=== PATIENT | female | born 1935 | race Caucasian/White ===

== ENCOUNTER 2019-11-11 13:47 | Inpatient (IN) | payer MEDICARE, BC ==
[2019-11-11] MEDS ORDERED: ONDANSETRON 4 MG/2 ML VIAL IVP STA (15:06)
[2019-11-11] MEDS ORDERED: SODIUM CHLORIDE 0.9% 1,000 ML IV STA (15:06)
[2019-11-11] MEDS ORDERED: FAMOTIDINE 20 MG/2 ML VIAL IV STA (15:06)
--- NOTE | 2019-11-11 15:09 | ED ---
General Adult HPI - General Chief complaint: Nausea/Vomiting/Diarrhea Stated complaint: Weakness, Hx Leukemia Time Seen by Provider: 11/11/19 14:24 Source: patient, RN notes reviewed Mode of arrival: wheelchair Limitations: no limitations - History of Present Illness Initial comments: Patient is a pleasant 84-year-old female presenting to the emergency department from,regarding concerns for dehydration. Patient states she has been vomiting for the past month. Patient is a poor historian. Patient states there is some sort of cancer history however is unclear what it is. Patient states her heart rate has normally irregular and fast. Patient feels nauseous and dry. No abdominal pain. No isolated area of weakness or confusion. - Related Data Allergies Allergy/AdvReac Type Severity Reaction Status Date / Time Penicillins Allergy Rash/Hives Verified 11/11/19 13:54 Review of Systems ROS Statement: Those systems with pertinent positive or pertinent negative responses have been documented in the HPI. ROS Other: All systems not noted in ROS Statement are negative. Constitutional: Denies: fever Eyes: Denies: eye pain ENT: Denies: ear pain Respiratory: Denies: cough Cardiovascular: Denies: chest pain Endocrine: Denies: fatigue Gastrointestinal: Reports: nausea, vomiting. Denies: abdominal pain Genitourinary: Denies: dysuria Musculoskeletal: Denies: back pain Skin: Denies: rash Neurological: Denies: weakness Past Medical History Past Medical History: Atrial Fibrillation Additional Past Medical History / Comment(s): leukemia History of Any Multi-Drug Resistant Organisms: None Reported Past Surgical History: No Surgical Hx Reported Past Psychological History: No Psychological Hx Reported Smoking Status: Never smoker Past Alcohol Use History: None Reported Past Drug Use History: None Reported General Exam Limitations: no limitations General appearance: alert, in no apparent distress Head exam: Present: normocephalic Eye exam: Present: normal appearance, PERRL ENT exam: Present: mucous membranes dry Neck exam: Present: normal inspection Respiratory exam: Present: normal lung sounds bilaterally Cardiovascular Exam: Present: tachycardia, irregular rhythm GI/Abdominal exam: Present: soft. Absent: tenderness Extremities exam: Present: normal inspection. Absent: pedal edema, calf tenderness Neurological exam: Present: alert. Absent: motor sensory deficit Psychiatric exam: Present: normal affect, normal mood Skin exam: Present: normal color Course Vital Signs 11/11/19 11/11/19 13:49 16:00 Temperature 97.4 F L Pulse Rate 134 H 71 Respiratory 24 18 Rate Blood Pressure 106/67 112/50 O2 Sat by Pulse 84 L 93 L Oximetry EKG Findings - EKG Comments: EKG Findings:: A. fib with RVR, rate 110. QRS 100. QT 348. QTC 470. Normal axis. Normal QRS. Nonspecific T waves. Medical Decision Making - Medical Decision Making Patient evaluated and is resting more comfortably in bed. Patient updated on results and plan. Case was discussed with practitioner Violet bridges who will consult for oncology. She recommends continued IV fluids and antibiotics. Case also discussed with Dr. Moreno, who will admit covering for Dr. Millard. - Lab Data Result diagrams: 11/11/19 14:50 11/11/19 14:50 Lab Results 11/11/19 11/11/19 11/11/19 Range/Units 14:50 14:50 14:50 WBC 168.4 H* (3.8-10.6) k/uL RBC 2.16 L (3.80-5.40) m/uL Hgb 7.5 L (11.4-16.0) gm/dL Hct 21.4 L (34.0-46.0) % MCV 99.2 (80.0-100.0) fL MCH 34.7 (25.0-35.0) pg MCHC 35.0 (31.0-37.0) g/dL RDW 18.7 H (11.5-15.5) % Plt Count 24 L (150-450) k/uL Neutrophils % (Manual) 1 % Lymphocytes % (Manual) 2 % Monocytes % (Manual) 2 % Blast Cells % 96 H* % Neutrophils # (Manual) 1.68 (1.3-7.7) k/uL Lymphocytes # (Manual) 3.37 (1.0-4.8) k/uL Monocytes # (Manual) 3.37 H (0-1.0) k/uL Blast Cells # (Man) 161.66 H (0) k/uL Nucleated RBCs 16 H (0-0) /100 WBC Manual Slide Review Performed Pathologist Review Hypochromasia Slight Poikilocytosis Slight Poikilocytosis (manual Present Anisocytosis Slight Macrocytosis Slight Sodium 138 (137-145) mmol/L Potassium 3.4 L (3.5-5.1) mmol/L Chloride 104 (98-107) mmol/L Carbon Dioxide 24 (22-30) mmol/L Anion Gap 10 mmol/L BUN 27 H (7-17) mg/dL Creatinine 1.32 H (0.52-1.04) mg/dL Est GFR (CKD-EPI)AfAm 43 (>60 ml/min/1.73 sqM) Est GFR (CKD-EPI)NonAf 38 (>60 ml/min/1.73 sqM) Glucose 137 H (74-99) mg/dL Plasma Lactic Acid Jelani 4.3 H* (0.7-2.0) mmol/L Calcium 8.1 L (8.4-10.2) mg/dL Phosphorus 4.2 (2.5-4.5) mg/dL Magnesium 2.0 (1.6-2.3) mg/dL Total Bilirubin 2.4 H (0.2-1.3) mg/dL AST 600 H (14-36) U/L ALT 119 H (4-34) U/L Alkaline Phosphatase 89 (38-126) U/L Total Protein 6.4 (6.3-8.2) g/dL Albumin 3.3 L (3.5-5.0) g/dL TSH 3.400 (0.465-4.680) mIU/L - Radiology Data Radiology results: image reviewed (Chest x-ray shows mild cardiac megaly) Disposition Clinical Impression: Dehydration, AML (acute myeloblastic leukemia) Disposition: ADMITTED IP TO THIS HOSP Is patient prescribed a controlled substance at d/c from ED?: No Referrals: Modesto Millard MD [Primary Care Provider] - 1-2 days Decision Time: 16:27
[2019-11-11 15:22] LABS: Anisocytosis Slight; HCT 21.4 % (34.0-46.0); HGB 7.5 gm/dL (11.4-16.0); Hypochromasia Slight; MCH 34.7 pg (25.0-35.0); MCV 99.2 fL (80.0-100.0); Macrocytosis Slight; Mean Platelet Volume 14.3; Poikilocytosis Slight; RBC 2.16 m/uL (3.80-5.40); RDW 18.7 % (11.5-15.5)
[2019-11-11 15:30] LABS: Albumin 3.3 g/dL (3.5-5.0); Calcium 8.1 mg/dL (8.4-10.2); Phosphorus 4.2 mg/dL (2.5-4.5); Potassium 3.4 mmol/L (3.5-5.1); Total Bilirubin 2.4 mg/dL (0.2-1.3); Total Protein 6.4 g/dL (6.3-8.2)
--- NOTE | 2019-11-11 15:37 | XR ---
EXAMINATION TYPE: XR chest 2V DATE OF EXAM: 11/11/2019 COMPARISON: NONE HISTORY: Vomiting and weakness. TECHNIQUE: Frontal and lateral views of the chest are obtained. FINDINGS: There is chronic parenchymal changes bilaterally without suspicious focal air space opacit y, pleural effusion, or pneumothorax seen. The cardiac silhouette size is mildly enlarged. The oss eous structures are intact. IMPRESSION: Mild cardiomegaly and chronic parenchymal changes without acute pulmonary process.
[2019-11-11 15:38] LABS: Blast Cells # (M) 161.66 k/uL (0); Lymphocytes # (M) 3.37 k/uL (1.0-4.8); Monocytes # (M) 3.37 k/uL (0-1.0); Neutrophils # (M) 1.68 k/uL (1.3-7.7); Neutrophils % (M) 1 %; Nucleated Red Blood Cells 16 /100 WBC (0-0); Total Cells Counted 200; WBC 168.4 k/uL (3.8-10.6)
[2019-11-11 15:49] LABS: Poikilocytosis (M) Present
[2019-11-11 15:50] LABS: Platelet Count 24 k/uL (150-450)
[2019-11-11] MEDS ORDERED: NALOXONE 0.4 MG/ML 1 ML VIAL IV PRN (16:28)
[2019-11-11] MEDS ORDERED: ONDANSETRON 4 MG/2 ML VIAL IVP PRN (16:28)
[2019-11-11] MEDS: PANTOPRAZOLE 40 MG/10 ML VIAL IV SCH (18:06)
[2019-11-11] MEDS ORDERED: SODIUM CHLORIDE 0.9% 1,800 ML IV ONE (20:09)
[2019-11-11] MEDS ORDERED: MELATONIN 5 MG TABLET PO SCH (21:00)
[2019-11-11] MEDS: METOPROLOL SUCCINATE (ER) 100 MG TAB.ER.24H PO SCH (21:40)
[2019-11-11] MEDS: SODIUM CHLORIDE 0.9% 1,000 ML IV SCH (22:16)
--- NOTE | 2019-11-11 23:57 | P.PN ---
Progress Note - Text Progress Note Date: 11/11/19 Patient was sent to emergency for further evaluation of dehydration and weakness today with presenting for CBC check. She was recently diagnosed with Acute Myeloid Leukemia. On 10/31/19 her WBC 22, AST 98, ALT 16. Reviewing her chart this evening her WBC 164, with a blast count of 161, 96%. Hyperleukocytosis: Increased number of peripheral blasts: - Concern for picture of blast crisis - Secondary complication to her acute leukemia - Leukoreduction will be started using hydroxyurea for the goal of cytoreduction - Will initiate Hydroxyurea 1000mg tonight and then BID - Will need to monitor closely for further cytopenias and transfuse PRBC if less than 7, platelets if less than 10K (less than 50 is signs of bleeding). Recommend close monitor of patient at this time. - MOnitor CBC, CMP, PT, INR, PTT, Uric acid, LDH closely Above plan has been discussed and implemented with Dr. Murillo (automation and controls manager for oncology). Discussed with RN and she stated difficult to keep her out of A-fib with RVR and alert. Agree with A team evaluation. Elicia Coronel AOCNP Full Dictation to follow in am
[2019-11-12] LABS: Glucose,Whole Blood 128 mg/dL (75-99)
[2019-11-12] MEDS ORDERED: METOPROLOL TARTRATE 5 MG/5 ML VIAL IVP PRN
[2019-11-12] MEDS ORDERED: DILTIAZEM DRIP BOLUS FROM BAG 1 MG SOLN IV ONE (00:14)
[2019-11-12] MEDS ORDERED: DILTIAZEM 125 MG in SODIUM CHLORIDE 0.9% 100 ML IV SCH (00:30)
[2019-11-12 00:44] LABS: Appearance,Urine Cloudy (Clear); Bacteria,Urine Rare /hpf; Bilirubin,Urine Negative (Negative); Blood,Urine Small (Negative); Color,Urine Yellow; Glucose,Urine (UA) Negative (Negative); Hyaline Casts,Urine 37 /lpf (0-2); Ketones,Urine Negative (Negative); Leukocyte Esterase,Urine Negative (Negative); Mucus,Urine Occasional /hpf; Nitrite,Urine Negative (Negative); Protein,Urine 1+ (Negative); RBC,Urine 2 /hpf (0-5); Specific Gravity,Urine 1.016 (1.001-1.035); Squamous Epithelial Cell,Urine 2 /hpf (0-4); WBC,Urine 3 /hpf (0-5)
[2019-11-12 00:47] LABS: Anisocytosis Slight; HCT 20.9 % (34.0-46.0); Hypochromasia Moderate; MCH 33.7 pg (25.0-35.0); MCHC 32.9 g/dL (31.0-37.0); MCV 102.4 fL (80.0-100.0); Macrocytosis Moderate; Mean Platelet Volume 13.4; Poikilocytosis Slight; RBC 2.04 m/uL (3.80-5.40); RDW 18.7 % (11.5-15.5)
[2019-11-12 00:52] LABS: HGB 6.9 gm/dL (11.4-16.0)
[2019-11-12 00:57] LABS: Albumin 3.1 g/dL (3.5-5.0); Calcium 7.6 mg/dL (8.4-10.2); Potassium 3.3 mmol/L (3.5-5.1); Total Bilirubin 2.8 mg/dL (0.2-1.3); Total Protein 6.2 g/dL (6.3-8.2)
[2019-11-12 01:38] LABS: Neutrophils % (M) 1 %
[2019-11-12 01:39] LABS: Blast Cells # (M) 187.79 k/uL (0); Lymphocytes # (M) 5.81 k/uL (1.0-4.8); Neutrophils # (M) 1.94 k/uL (1.3-7.7); Nucleated Red Blood Cells 5 /100 WBC (0-0); Total Cells Counted 200; WBC 193.6 k/uL (3.8-10.6)
[2019-11-12 01:40] LABS: Polychromasia Present
[2019-11-12 01:41] LABS: Platelet Count 19 k/uL (150-450)
[2019-11-12] MEDS ORDERED: POTASSIUM CHLORIDE 10 MEQ in WATER FOR INJECTION 1 100ML.BAG IVPB SCH (04:30)
[2019-11-12] MEDS ORDERED: POTASSIUM CHLORIDE 20 MEQ in WATER FOR INJECTION 1 100ML.BAG IVPB ONE (05:00)
[2019-11-12 05:57] LABS: Anisocytosis Slight; Hypochromasia Slight; MCH 34.4 pg (25.0-35.0); MCHC 33.8 g/dL (31.0-37.0); MCV 101.8 fL (80.0-100.0); Macrocytosis Moderate; Mean Platelet Volume 13.7; Poikilocytosis Slight; RBC 1.96 m/uL (3.80-5.40); RDW 19.1 % (11.5-15.5)
[2019-11-12 05:59] LABS: INR 2.5 (<1.2); Partial Thromboplastin Time 24.3 sec (22.0-30.0); Prothrombin Time 24.2 sec (9.0-12.0)
[2019-11-12 06:03] LABS: HGB 6.7 gm/dL (11.4-16.0)
[2019-11-12 06:14] LABS: Albumin 3.3 g/dL (3.5-5.0); Calcium 7.8 mg/dL (8.4-10.2); Potassium 3.1 mmol/L (3.5-5.1); Total Protein 6.4 g/dL (6.3-8.2)
[2019-11-12 06:22] LABS: Blast Cells # (M) 201.44 k/uL (0); Lymphocytes # (M) 10.83 k/uL (1.0-4.8); Neutrophils % (M) 3 %; Nucleated Red Blood Cells 3 /100 WBC (0-0); Total Cells Counted 200; WBC 216.6 k/uL (3.8-10.6)
[2019-11-12 06:23] LABS: Polychromasia Present
[2019-11-12 06:24] LABS: Platelet Count 20 k/uL (150-450)
[2019-11-12] MEDS: PANTOPRAZOLE 40 MG/10 ML VIAL IV SCH (08:29)
[2019-11-12] MEDS: METOPROLOL SUCCINATE (ER) 100 MG TAB.ER.24H PO SCH (08:29)
[2019-11-12] MEDS: LEVOTHYROXINE 50 MCG TAB PO SCH ×2 (08:29→08:39)
--- NOTE | 2019-11-12 08:33 | P.CRDCN ---
History of Present Illness Consult date: 11/12/19 Requesting physician: Barbara Ayers Consult reason: atrial fibrillation Chief complaint: Vomiting, dehydration History of present illness: This is an 84-year-old female, her daughter is at bedside and the history was obtained from her. Patient was recently diagnosed with acute myeloid leukemia, she was at [facility] for approximately 2 weeks. Apparently while she was at [facility], patient was also diagnosed with atrial fibrillation. No prior documentation of hypertension, no diabetes, no hyperlipidemia. She presented to the hospital on this occasion with vomiting and possible dehydration. Chest x-ray shows mild cardiomegaly and chronic parenchymal changes without any acute pulmonary process. Her EKG shows atrial fibrillation with rapid ventricular response, occasional PVC. This morning patient continues to be in atrial fibrillation, her heart rate is in the 140s. She is currently on IV Cardizem at 5 mg per hour. They did attempt to give the patient some oral medications this morning but she vomited. Blood pressure 120/70 with a heart rate in the 140s, 94% on 10 L high flow, 97.6 temperature. White blood cell count 193.6, hemoglobin 6.9, platelet count 19, INR 2.5, sodium 140, potassium 3.3, BUN 29, creatinine 1.3, plasma lactic acid 3.9, uric acid 14, calcium 7.6. Total bilirubin 2.8, AST on admission 600, 1148 this morning, ALT 119 on admission, 224 now, lactate dehydrogenase 18,073, TSH 3.4. At the time of my examination this morning, patient is resting comfortably in bed, she is confused Past Medical History Past Medical History: Atrial Fibrillation Additional Past Medical History / Comment(s): leukemia History of Any Multi-Drug Resistant Organisms: None Reported Past Surgical History: No Surgical Hx Reported Additional Past Surgical History / Comment(s): D/C 20 years ago Past Anesthesia/Blood Transfusion Reactions: No Reported Reaction Past Psychological History: No Psychological Hx Reported Smoking Status: Never smoker Past Alcohol Use History: None Reported Past Drug Use History: None Reported - Past Family History Mother History Unknown: Yes Additional Family Medical History / Comment(s): Heart disease Father History Unknown: Yes Additional Family Medical History / Comment(s): Heart disease Medications and Allergies Home Medications Medication Instructions Recorded Confirmed Type Ergocalciferol [Vitamin D2] 50,000 unit PO Q14D 03/18/20 03/18/20 History Levothyroxine Sodium [Synthroid] 50 mcg PO DAILY 11/11/19 11/11/19 History Melatonin 10 mg PO HS 11/11/19 11/11/19 History Metoprolol Succinate [Toprol XL] 100 mg PO BID 11/11/19 11/11/19 History Ondansetron HCl [Zofran] 4 mg PO Q6H PRN 11/11/19 11/11/19 History Ondansetron [Zofran] 8 mg PO BID 11/11/19 11/11/19 History Pantoprazole Sodium [Protonix] 40 mg PO DAILY 11/11/19 11/11/19 History Allergies Allergy/AdvReac Type Severity Reaction Status Date / Time Penicillins Allergy Rash/Hives Verified 11/11/19 16:32 Physical Exam Vitals: Vital Signs Temp Pulse Pulse Resp BP BP Pulse Ox 11/12/19 04:00 97.6 F 142 H 18 120/76 94 L 11/12/19 02:39 96 11/12/19 00:47 93 L 11/12/19 00:22 99 11/11/19 23:58 97.6 F 136 H 17 126/71 93 L 11/11/19 23:40 88 11/11/19 23:38 122 H 18 106/54 94 L 11/11/19 19:25 98 F 72 16 109/64 95 11/11/19 17:36 98.1 F 74 17 99/50 95 11/11/19 16:00 71 18 112/50 93 L 11/11/19 13:49 97.4 F L 134 H 24 106/67 84 L Intake and Output 11/11/19 11/12/19 11/12/19 22:59 06:59 14:59 Intake Total 2100 450 Output Total 0 Balance 2100 450 Intake: IV 450 Sodium Chloride 0.9% 1, 450 000 ml @ 75 mls/hr IV . [id number] [facility] Rx#:[id number] Intake, IV Titration 1800 Amount Sodium Chloride 0.9% 1, 1800 800 ml @ 999 mls/hr IV . Q1H49M [facility] Rx#:[id number] Oral 300 Output: Urine 0 Other: Voiding Method Bedside Commode Weight 64.41 kg 66 kg PHYSICAL EXAMINATION: GENERAL: 84-year-old female in no acute distress at the time of my examination HEENT: Head is atraumatic, normocephalic. Pupils equal, round. Sclera anicteric. Conjunctiva are clear. Mucous membranes of the mouth are moist. Neck is supple. There is no elevated jugular venous pressure. No carotid bruit is heard. HEART EXAMINATION: Or S1 and S2 irregularly irregular CHEST EXAMINATION: Lungs are clear to auscultation and precussion. No chest wall tenderness is noted on palpation or with deep breathing. ABDOMEN: Soft, nontender. Bowel sounds are heard. No organomegaly noted. EXTREMITIES: 2+ peripheral pulses with no evidence of peripheral edema and no calf tenderness noted. NEUROLOGIC [patient is sleepy, confused Results 11/12/19 05:05 11/12/19 05:05 Cardiac Enzymes 11/11/19 11/12/19 11/12/19 Range/Units 14:50 00:11 05:05 AST 600 H 1148 H 1790 H (14-36) U/L Lactate Dehydrogenase 78807 H (313-618) U/L Coagulation 11/12/19 Range/Units 05:05 PT 24.2 H (9.0-12.0) sec APTT 24.3 (22.0-30.0) sec CBC 11/11/19 11/12/19 11/12/19 Range/Units 14:50 00:11 05:05 WBC 168.4 H* 193.6 H* 216.6 H* (3.8-10.6) k/uL RBC 2.16 L 2.04 L 1.96 L (3.80-5.40) m/uL Hgb 7.5 L 6.9 L* 6.7 L* (11.4-16.0) gm/dL Hct 21.4 L 20.9 L 20.0 L (34.0-46.0) % Plt Count 24 L 19 L* 20 L (150-450) k/uL Comprehensive Metabolic Panel 11/11/19 11/12/19 11/12/19 Range/Units 14:50 00:11 05:05 Sodium 138 140 143 (137-145) mmol/L Potassium 3.4 L 3.3 L 3.1 L (3.5-5.1) mmol/L Chloride 104 108 H 108 H (98-107) mmol/L Carbon Dioxide 24 22 22 (22-30) mmol/L BUN 27 H 29 H 30 H (7-17) mg/dL Creatinine 1.32 H 1.32 H 1.28 H (0.52-1.04) mg/dL Glucose 137 H 118 H 112 H (74-99) mg/dL Calcium 8.1 L 7.6 L 7.8 L (8.4-10.2) mg/dL AST 600 H 1148 H 1790 H (14-36) U/L ALT 119 H 224 H 393 H (4-34) U/L Alkaline Phosphatase 89 88 94 (38-126) U/L Total Protein 6.4 6.2 L 6.4 (6.3-8.2) g/dL Albumin 3.3 L 3.1 L 3.3 L (3.5-5.0) g/dL Current Medications Generic Name Dose Route Start Last Admin Trade Name Freq PRN Reason Stop Dose Admin Ergocalciferol 50,000 unit 11/25/19 09:00 Vitamin D2 PO Q14D [facility] Hydroxyurea 1,000 mg 11/12/19 09:00 Hydrea PO DAILY ELLA Sodium Chloride 1,000 mls @ 75 mls/hr 11/11/19 22:15 11/11/19 22:16 Saline 0.9% IV 75 mls/hr .[id number] ELLA Administration Diltiazem HCl 125 mg/ Sodium 125 mls @ 10 mls/hr 11/12/19 00:30 11/12/19 01:25 Chloride IV 5 mg/hr .[id number] ELLA 5 mls/hr Administration 10 MG/HR Levothyroxine Sodium 50 mcg 11/12/19 06:30 Synthroid PO DAILY@0630 ELLA Melatonin 10 mg 11/11/19 21:00 11/11/19 21:40 Melatonin PO Not Given HS [facility] Metoprolol Succinate 100 mg 11/11/19 21:00 11/11/19 21:40 Toprol Xl PO Not Given BID [facility] Metoprolol Tartrate 5 mg 11/12/19 00:00 Lopressor IVP Q6HR PRN Heart Rate - HIGH Naloxone HCl 0.2 mg 11/11/19 16:28 Narcan IV Q2M PRN Opioid Reversal Ondansetron HCl 4 mg 11/11/19 16:28 11/11/19 23:44 Zofran IVP 4 mg Q8HR PRN Administration Nausea And Vomiting Pantoprazole Sodium 40 mg 11/11/19 16:30 11/11/19 18:06 Protonix IV 40 mg DAILY ELLA Administration Intake and Output 11/11/19 11/12/19 11/12/19 22:59 06:59 14:59 Intake Total 2100 450 Output Total 0 Balance 2100 450 Intake: IV 450 Sodium Chloride 0.9% 1, 450 000 ml @ 75 mls/hr IV . [id number] [facility] Rx#:[id number] Intake, IV Titration 1800 Amount Sodium Chloride 0.9% 1, 1800 800 ml @ 999 mls/hr IV . Q1H49M [facility] Rx#:[id number] Oral 300 Output: Urine 0 Other: Voiding Method Bedside Commode Weight 64.41 kg 66 kg 11/12/19 05:05 11/12/19 05:05 EKG Interpretations (text) EKG shows atrial fibrillation with a rapid ventricular response Assessment and Plan Plan: Assessment and plan #1 vomiting and dehydration #2 atrial fibrillation with rapid ventricular response, persistent. #3 acute myeloid leukemia, white blood cell count 193, hemoglobin 6.9, platelet count 19. #4 hypothyroidism #5 hypokalemia #6 elevated liver enzymes Plan We will obtain an echocardiogram with Doppler study. We will also obtain records from [facility] where the patient was recently admitted. She is not currently on anticoagulation because of the acute myeloid leukemia. We will increase her Cardizem drip, patient is Not currently able to take oral medications so we will change her Lopressor to IV, replace potassium. Continue supportive care. DNP note has been reviewed, I agree with a documented findings and plan of care. Patient was seen and examined.
[2019-11-12] MEDS ORDERED: METOPROLOL TARTRATE 5 MG/5 ML VIAL IVP SCH (08:40)
[2019-11-12] MEDS ORDERED: HYDROXYUREA 500 MG CAP PO SCH (09:00)
[2019-11-12] MEDS ORDERED: RASBURICASE 6 MG in SODIUM CHLORIDE 0.9% 46 ML IV ONE (10:04)
[2019-11-12] MEDS ORDERED: PHYTONADIONE 5 MG in SODIUM CHLORIDE 0.9% 50 ML IVPB STA (10:05)
[2019-11-12 10:21] VITALS: BMI 26.6
[2019-11-12] MEDS ORDERED: LORazepam 2 MG/ML INJ IV PRN (10:51)
[2019-11-12 12:33] VITALS: BP 105/71; PULSE 121; RESP 22; TEMP 97.5
--- NOTE | 2019-11-12 12:39 | ECHOF ---
Referral Reason:afib MEASUREMENTS -------- HEIGHT: 157.5 cm WEIGHT: 65.8 kg BP: RVIDd: 3.7 cm (< 3.3) IVSd: 1.2 cm (0.6 - 1.1) LVIDd: 4.1 cm (3.9 - 5.3) LVPWd: 1.1 cm (0.6 - 1.1) IVSs: 1.1 cm LVIDs: 2.9 cm LVPWs: 1.1 cm LAESV Index (A-L): 51.23 ml/m Ao Diam: 2.8 cm (2.0 - 3.7) AV Cusp: 1.9 cm (1.5 - 2.6) LA Diam: 3.3 cm (2.7 - 3.8) AR PHT: 683 ms RAP: 5.00 mmHg RVSP: 43.24 mmHg FINDINGS -------- Atrial fibrillation. This was a technically difficult study with suboptimal views. The left ventricular size is normal. There is mild concentric left ventricular hypertrophy. Overa ll left ventricular systolic function is mildly impaired with, an EF between 45 - 50 %. Left ventri cular fillimg pressure cannot be estimated due to Atrial fibrillation. Basal inferior LV wall motio n is hypokinetic. The right ventricle is mildly enlarged. LA is severely dilated >40 ml/m2 RA appears enlarged. xx ml of Lumason was utilized for enhancement of images. Aortic valve is trileaflet and is mildly thickened. There is mild aortic regurgitation. The mitral valve is normal. The mitral valve leaflets are mildly thickened. Moderate mitral annul ar calcification present. Moderate mitral regurgitation is present , predominately a posteriorly di rected jet. The tricuspid valve appears structurally normal. Severe tricuspid regurgitation present. There is mild pulmonary hypertension. The right ventricular systolic pressure, as measured by Doppler, is 4 3.24mmHg. There is no pulmonic regurgitation present. The aortic root size is normal. IVC Not well visulized. There is no pericardial effusion. CONCLUSIONS -------- 1. Atrial fibrillation. 2. This was a technically difficult study with suboptimal views. 3. The left ventricular size is normal. 4. There is mild concentric left ventricular hypertrophy. 5. Overall left ventricular systolic function is mildly impaired with, an EF between 45 - 50 %. 6. Left ventricular fillimg pressure cannot be estimated due to Atrial fibrillation. 7. Basal inferior LV wall motion is hypokinetic. 8. The right ventricle is mildly enlarged. 9. LA is severely dilated >40 ml/m2 10. RA appears enlarged. 11. xx ml of Lumason was utilized for enhancement of images. 12. Aortic valve is trileaflet and is mildly thickened. 13. There is mild aortic regurgitation. 14. The mitral valve is normal. 15. The mitral valve leaflets are mildly thickened. 16. Moderate mitral annular calcification present. 17. Moderate mitral regurgitation is present. 18. , predominately a posteriorly directed jet. 19. The tricuspid valve appears structurally normal. 20. Severe tricuspid regurgitation present. 21. There is mild pulmonary hypertension. 22. The right ventricular systolic pressure, as measured by Doppler, is 43.24mmHg. 23. There is no pulmonic regurgitation present. 24. The aortic root size is normal. 25. IVC Not well visulized. 26. There is no pericardial effusion. MANAGER STRATE[employer]IC SOURCING: Anika Arnold RDCS
--- NOTE | 2019-11-12 12:57 | P.HPIM ---
History of Present Illness H&P Date: 11/12/19 Chief Complaint: weakness This is an 84-year-old female patient of Dr. Millard recently diagnosed with acute myeloid leukemia, chronic atrial fibrillation, hypothyroidism, gastroesophageal reflux disease. Patient had presented to oncology for repeat lab work. There was concern for dehydration and weakness and patient was sent to emergency center for evaluation. Patient presented to [facility] emergency center. Patient was afebrile, heart rate 134, respiratory rate 24, blood pressure 106/67, pulse ox 84% on room air. EKG was A. fib with RVR at a rate of 110. Lab work revealed WBC count 168.4, hemoglobin 7.5, platelet count 24. Sodium 138, potassium 3.4, chloride 104, CO2 24, BUN 27 creatinine 1.32, blood sugar 137. Lactic acid 4.3. Total bilirubin 2.4, AST 600, ALT 119, TSH 3.4. Chest x-ray showed mild cardiomegaly. Patient was admitted to the cardiac stepdown unit. Consults in place with cardiology for A. fib with RVR and oncology. Patient is currently on Cardizem at 5 mg per hour. At time of evaluation, patient's heart rate remains elevated. Daughter is at bedside and discussed plan. Patient will be transitioned to hospice care once all arrangements are completed. Patient will be transitioned to [facility] hospice care. All aggressive treatment will be discontinued. Review of Systems Constitutional: Reports anorexia, Reports fatigue, Reports lethargy, Reports malaise, Reports poor appetite, Reports weakness, Reports weight loss, Denies chills, Denies fever Eyes: denies blurred vision, denies pain Ears, nose, mouth and throat: Denies dysphagia, Denies headache, Denies nasal congestion, Denies nasal discharge, Denies sore throat, Denies vertigo Cardiovascular: Reports decreased exercise tolerance, Reports dyspnea on exertion, Denies chest pain, Denies lightheadedness, Denies shortness of breath, Denies syncope Gastrointestinal: Denies abdominal pain, Denies diarrhea, Denies nausea, Denies vomiting Genitourinary: Denies dysuria, Denies hematuria, Denies urgency, Denies urinary frequency Menstruation: Reports postmenopausal Musculoskeletal: Reports muscle weakness, Denies myalgias Integumentary: Denies pruritus, Denies rash, Denies wounds Neurological: Denies change in mentation, Denies change in speech, Denies numbness, Denies weakness Psychiatric: Denies anxiety, Denies depression Endocrine: Denies fatigue, Denies weight change Past Medical History Past Medical History: Atrial Fibrillation Additional Past Medical History / Comment(s): Acute myeloid leukemia History of Any Multi-Drug Resistant Organisms: None Reported Past Surgical History: No Surgical Hx Reported Additional Past Surgical History / Comment(s): D/C 20 years ago Past Anesthesia/Blood Transfusion Reactions: No Reported Reaction Past Psychological History: No Psychological Hx Reported Smoking Status: Never smoker Past Alcohol Use History: None Reported Past Drug Use History: None Reported - Past Family History Mother History Unknown: Yes Additional Family Medical History / Comment(s): Heart disease Father History Unknown: Yes Additional Family Medical History / Comment(s): Heart disease Medications and Allergies Home Medications Medication Instructions Recorded Confirmed Type Ergocalciferol [Vitamin D2] 50,000 unit PO Q14D 11/11/19 11/11/19 History Levothyroxine Sodium [Synthroid] 50 mcg PO DAILY 11/11/19 11/11/19 History Melatonin 10 mg PO HS 11/11/19 11/11/19 History Metoprolol Succinate [Toprol XL] 100 mg PO BID 11/11/19 11/11/19 History Ondansetron HCl [Zofran] 4 mg PO Q6H PRN 11/11/19 11/11/19 History Ondansetron [Zofran] 8 mg PO BID 11/11/19 11/11/19 History Pantoprazole Sodium [Protonix] 40 mg PO DAILY 11/11/19 11/11/19 History Allergies Allergy/AdvReac Type Severity Reaction Status Date / Time Penicillins Allergy Rash/Hives Verified 11/11/19 16:32 Physical Exam Vitals: Vital Signs Temp Pulse Pulse Resp BP BP Pulse Ox 11/12/19 08:00 138 H 19 106/76 96 11/12/19 04:00 97.6 F 142 H 18 120/76 94 L 11/12/19 02:39 96 11/12/19 00:47 93 L 11/12/19 00:22 99 11/11/19 23:58 97.6 F 136 H 17 126/71 93 L 11/11/19 23:40 88 11/11/19 23:38 122 H 18 106/54 94 L 11/11/19 19:25 98 F 72 16 109/64 95 11/11/19 17:36 98.1 F 74 17 99/50 95 11/11/19 16:00 71 18 112/50 93 L 11/11/19 13:49 97.4 F L 134 H 24 106/67 84 L Intake and Output 11/11/19 11/12/19 11/12/19 22:59 06:59 14:59 Intake Total 2100 450 Output Total 0 Balance 2100 450 Intake: IV 450 Sodium Chloride 0.9% 1, 450 000 ml @ 75 mls/hr IV . [id number] ELLA Rx#:[id number] Intake, IV Titration 1800 Amount Sodium Chloride 0.9% 1, 1800 800 ml @ 999 mls/hr IV . Q1H49M ONE Rx#:[id number] Oral 300 Output: Urine 0 Other: Voiding Method Bedside Commode Weight 64.41 kg 66 kg 66 kg Gen: This is a frail appearing 84-year-old female. Patient appears to have significant weakness. Patient's daughter is at bedside. HEENT: Head is atraumatic, normocephalic. Pupils equal, round. Sclerae is anicteric. NECK: Supple. No JVD. No lymphadenopathy. No thyromegaly. LUNGS: Clear to auscultation. No wheezes or rhonchi. No intercostal retractions. HEART: Irregularly irregular rate and rhythm. No murmur. ABDOMEN: Soft. Bowel sounds are present. No masses. No tenderness. EXTREMITIES: No pedal edema. No calf tenderness. NEUROLOGICAL: Patient is awake, alert and oriented x3. Results CBC & Chem 7: 11/12/19 05:05 11/12/19 05:05 Labs: Abnormal Lab Results - Last 24 Hours (Table) 11/11/19 11/11/19 11/11/19 Range/Units 14:50 14:50 14:50 WBC 168.4 H* (3.8-10.6) k/uL RBC 2.16 L (3.80-5.40) m/uL Hgb 7.5 L (11.4-16.0) gm/dL Hct 21.4 L (34.0-46.0) % MCV (80.0-100.0) fL RDW 18.7 H (11.5-15.5) % Plt Count 24 L (150-450) k/uL Blast Cells % 96 H* % Lymphocytes # (Manual) (1.0-4.8) k/uL Monocytes # (Manual) 3.37 H (0-1.0) k/uL Blast Cells # (Man) 161.66 H (0) k/uL Nucleated RBCs 16 H (0-0) /100 WBC PT (9.0-12.0) sec INR (<1.2) Potassium 3.4 L (3.5-5.1) mmol/L Chloride (98-107) mmol/L BUN 27 H (7-17) mg/dL Creatinine 1.32 H (0.52-1.04) mg/dL Glucose 137 H (74-99) mg/dL POC Glucose (mg/dL) (75-99) mg/dL Plasma Lactic Acid Jelani 4.3 H* (0.7-2.0) mmol/L Uric Acid (3.7-7.4) mg/dL Calcium 8.1 L (8.4-10.2) mg/dL Total Bilirubin 2.4 H (0.2-1.3) mg/dL AST 600 H (14-36) U/L ALT 119 H (4-34) U/L Lactate Dehydrogenase (313-618) U/L Total Protein (6.3-8.2) g/dL Albumin 3.3 L (3.5-5.0) g/dL Urine Appearance (Clear) Urine Protein (Negative) Urine Blood (Negative) Urine Bacteria (None) /hpf Hyaline Casts (0-2) /lpf Urine Mucus (None) /hpf 11/11/19 11/11/19 11/11/19 Range/Units 18:59 23:00 23:58 WBC (3.8-10.6) k/uL RBC (3.80-5.40) m/uL Hgb (11.4-16.0) gm/dL Hct (34.0-46.0) % MCV (80.0-100.0) fL RDW (11.5-15.5) % Plt Count (150-450) k/uL Blast Cells % % Lymphocytes # (Manual) (1.0-4.8) k/uL Monocytes # (Manual) (0-1.0) k/uL Blast Cells # (Man) (0) k/uL Nucleated RBCs (0-0) /100 WBC PT (9.0-12.0) sec INR (<1.2) Potassium (3.5-5.1) mmol/L Chloride (98-107) mmol/L BUN (7-17) mg/dL Creatinine (0.52-1.04) mg/dL Glucose (74-99) mg/dL POC Glucose (mg/dL) 128 H (75-99) mg/dL Plasma Lactic Acid Jelani 3.4 H* (0.7-2.0) mmol/L Uric Acid (3.7-7.4) mg/dL Calcium (8.4-10.2) mg/dL Total Bilirubin (0.2-1.3) mg/dL AST (14-36) U/L ALT (4-34) U/L Lactate Dehydrogenase (313-618) U/L Total Protein (6.3-8.2) g/dL Albumin (3.5-5.0) g/dL Urine Appearance Cloudy H (Clear) Urine Protein 1+ H (Negative) Urine Blood Small H (Negative) Urine Bacteria Rare H (None) /hpf Hyaline Casts 37 H (0-2) /lpf Urine Mucus Occasional H (None) /hpf 11/12/19 11/12/19 11/12/19 Range/Units 00:11 00:11 00:11 WBC 193.6 H* (3.8-10.6) k/uL RBC 2.04 L (3.80-5.40) m/uL Hgb 6.9 L* (11.4-16.0) gm/dL Hct 20.9 L (34.0-46.0) % MCV 102.4 H (80.0-100.0) fL RDW 18.7 H (11.5-15.5) % Plt Count 19 L* (150-450) k/uL Blast Cells % 97 H* % Lymphocytes # (Manual) 5.81 H (1.0-4.8) k/uL Monocytes # (Manual) (0-1.0) k/uL Blast Cells # (Man) 187.79 H (0) k/uL Nucleated RBCs 5 H (0-0) /100 WBC PT (9.0-12.0) sec INR (<1.2) Potassium 3.3 L (3.5-5.1) mmol/L Chloride 108 H (98-107) mmol/L BUN 29 H (7-17) mg/dL Creatinine 1.32 H (0.52-1.04) mg/dL Glucose 118 H (74-99) mg/dL POC Glucose (mg/dL) (75-99) mg/dL Plasma Lactic Acid Jelani 3.6 H* (0.7-2.0) mmol/L Uric Acid (3.7-7.4) mg/dL Calcium 7.6 L (8.4-10.2) mg/dL Total Bilirubin 2.8 H (0.2-1.3) mg/dL AST 1148 H (14-36) U/L ALT 224 H (4-34) U/L Lactate Dehydrogenase (313-618) U/L Total Protein 6.2 L (6.3-8.2) g/dL Albumin 3.1 L (3.5-5.0) g/dL Urine Appearance (Clear) Urine Protein (Negative) Urine Blood (Negative) Urine Bacteria (None) /hpf Hyaline Casts (0-2) /lpf Urine Mucus (None) /hpf 11/12/19 11/12/19 11/12/19 Range/Units 05:05 05:05 05:05 WBC 216.6 H* (3.8-10.6) k/uL RBC 1.96 L (3.80-5.40) m/uL Hgb 6.7 L* (11.4-16.0) gm/dL Hct 20.0 L (34.0-46.0) % MCV 101.8 H (80.0-100.0) fL RDW 19.1 H (11.5-15.5) % Plt Count 20 L (150-450) k/uL Blast Cells % 93 H* % Lymphocytes # (Manual) 10.83 H (1.0-4.8) k/uL Monocytes # (Manual) (0-1.0) k/uL Blast Cells # (Man) 201.44 H (0) k/uL Nucleated RBCs 3 H (0-0) /100 WBC PT 24.2 H (9.0-12.0) sec INR 2.5 H (<1.2) Potassium 3.1 L (3.5-5.1) mmol/L Chloride 108 H (98-107) mmol/L BUN 30 H (7-17) mg/dL Creatinine 1.28 H (0.52-1.04) mg/dL Glucose 112 H (74-99) mg/dL POC Glucose (mg/dL) (75-99) mg/dL Plasma Lactic Acid Jelani (0.7-2.0) mmol/L Uric Acid 14.0 H (3.7-7.4) mg/dL Calcium 7.8 L (8.4-10.2) mg/dL Total Bilirubin 3.0 H (0.2-1.3) mg/dL AST 1790 H (14-36) U/L ALT 393 H (4-34) U/L Lactate Dehydrogenase 74147 H (313-618) U/L Total Protein (6.3-8.2) g/dL Albumin 3.3 L (3.5-5.0) g/dL Urine Appearance (Clear) Urine Protein (Negative) Urine Blood (Negative) Urine Bacteria (None) /hpf Hyaline Casts (0-2) /lpf Urine Mucus (None) /hpf 11/12/19 11/12/19 Range/Units 05:05 09:46 WBC (3.8-10.6) k/uL RBC (3.80-5.40) m/uL Hgb (11.4-16.0) gm/dL Hct (34.0-46.0) % MCV (80.0-100.0) fL RDW (11.5-15.5) % Plt Count (150-450) k/uL Blast Cells % % Lymphocytes # (Manual) (1.0-4.8) k/uL Monocytes # (Manual) (0-1.0) k/uL Blast Cells # (Man) (0) k/uL Nucleated RBCs (0-0) /100 WBC PT (9.0-12.0) sec INR (<1.2) Potassium (3.5-5.1) mmol/L Chloride (98-107) mmol/L BUN (7-17) mg/dL Creatinine (0.52-1.04) mg/dL Glucose (74-99) mg/dL POC Glucose (mg/dL) (75-99) mg/dL Plasma Lactic Acid Jelani 3.9 H* 5.7 H* (0.7-2.0) mmol/L Uric Acid (3.7-7.4) mg/dL Calcium (8.4-10.2) mg/dL Total Bilirubin (0.2-1.3) mg/dL AST (14-36) U/L ALT (4-34) U/L Lactate Dehydrogenase (313-618) U/L Total Protein (6.3-8.2) g/dL Albumin (3.5-5.0) g/dL Urine Appearance (Clear) Urine Protein (Negative) Urine Blood (Negative) Urine Bacteria (None) /hpf Hyaline Casts (0-2) /lpf Urine Mucus (None) /hpf Thrombosis Risk Factor Assmnt - DVT/VTE Prophylaxis DVT/VTE Prophylaxis: Contraindicated - See note (hospice) - Choose All That Apply Each Factor Represents 1 point: Obesity (BMI >25), Swollen legs (current) Each Risk Factor Represents 3 Points: Age 75 years or older Other congenital or acquired thrombophilia - If yes, enter type in comment: No Thrombosis Risk Factor Assessment Total Risk Factor Score: 5 Thrombosis Risk Factor Assessment Level: High Risk Assessment and Plan Plan: 1. Acute myeloid leukemia with hyperleukocytosis and possible blast crisis. Oncology consult appreciated. 2. A. fib with RVR. Cardiology consult appreciated. 3. Chronic atrial fibrillation. 4. Acute hypoxic respiratory failure secondary to SIRS, AML and multiorgan failure. Patient is currently on high flow O2 at 12 L. 5. Acute lactic acidosis secondary to SIRS. 6. Acute kidney injury, chronic kidney disease stage II. 7. Acute liver injury. 8. Hypokalemia. 9. Hypothyroidism.. CODE STATUS: No code Patient will be admitted to the hospital for a minimum of 2 night stay. Plan: Transition patient to [facility] hospice care. Stop all aggressive treatment. Impression and plan of care have been directed as dictated by the signing physician. Honey Leonard nurse practitioner acting as scribe for signing physician.
[2019-11-12] MEDS: SODIUM CHLORIDE 0.9% 1,000 ML IV SCH (13:27)
--- NOTE | 2019-11-12 17:35 | P.CONS ---
History of Present Illness - Reason for Consult Consult date: 11/12/19 AML, blast crisis Requesting physician: Rigoberto Osborne - Chief Complaint intractable N, anorexia, dehydration - History of Present Illness Mrs. Hsu is a very pleasant 84-year-old female patient seen by Dr. Spears in consult 10/29/19. Pt was previously referred but, pending her appointment, by her PCP Dr. Millard for leukocytosis, thrombocytopenia and anemia. She was admitted to the hospital for progressive fatigue. 10/29/19 Hgb 7.4, platelets 27,000, WBC 18.8, peripheral smear showed 70% blasts. CT of the abdomen and pelvis no lymphadenopathy or lesions. Labs did not show evidence of end organ damage or tumor lysis. She had a bone marrow biopsy and aspirate with Dr. 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 Pending NGS for any potential targetable mutations as pt is not a candidate for induction chemotherapy and not a candidate for BMT. Patient has been on biweekly CBC monitoring in case if needed transfusions. 11/11/19 Patient shows in office, c/o progressive weakness, per the family she has not ate in 2 days, patient having persistent nausea/dry heaves, she is very uncomfortable. No c/o fevers, chills, new or unusual cough, sore throat, earache, chest pain, acute changes in bowel or bladder habits, dysuria, hematuria, bleeding. She had some bruising, mouth very dry with some blood noted, she was very weak. We attempted hydration and symptom management in the office. Unfortunately, patient did not have a decent enough response. He was recommended she be taken to the hospital for further hydration. Labs were drawn overnight, based on her significant increase in WBC count she was to be started on Hydrea. Patient has symptoms of liver failure, tumor lysis labs elevated, patient is auto anticoagulated. When seen today patient is moderately agitated, she will open her eyes when you talk to her, does not answer questions, she is moaning at times. One of her daughters is at the bedside Review of Systems ROS unobtainable: due to mental status Past Medical History Past Medical History: Atrial Fibrillation Additional Past Medical History / Comment(s): leukemia History of Any Multi-Drug Resistant Organisms: None Reported Past Surgical History: No Surgical Hx Reported Additional Past Surgical History / Comment(s): D/C 20 years ago Past Anesthesia/Blood Transfusion Reactions: No Reported Reaction Past Psychological History: No Psychological Hx Reported Smoking Status: Never smoker Past Alcohol Use History: None Reported Past Drug Use History: None Reported - Past Family History Mother History Unknown: Yes Additional Family Medical History / Comment(s): Heart disease Father History Unknown: Yes Additional Family Medical History / Comment(s): Heart disease Medications and Allergies Home Medications Medication Instructions Recorded Confirmed Type Ergocalciferol [Vitamin D2] 50,000 unit PO Q14D 11/11/19 11/11/19 History Levothyroxine Sodium [Synthroid] 50 mcg PO DAILY 11/11/19 11/11/19 History Melatonin 10 mg PO HS 11/11/19 11/11/19 History Metoprolol Succinate [Toprol XL] 100 mg PO BID 11/11/19 11/11/19 History Ondansetron HCl [Zofran] 4 mg PO Q6H PRN 11/11/19 11/11/19 History Ondansetron [Zofran] 8 mg PO BID 11/11/19 11/11/19 History Pantoprazole Sodium [Protonix] 40 mg PO DAILY 11/11/19 11/11/19 History Allergies Allergy/AdvReac Type Severity Reaction Status Date / Time Penicillins Allergy Rash/Hives Verified 11/11/19 16:32 Physical Exam Vitals: Vital Signs Temp Pulse Pulse Resp BP BP Pulse Ox 11/12/19 08:00 138 H 19 106/76 96 11/12/19 04:00 97.6 F 142 H 18 120/76 94 L 11/12/19 02:39 96 11/12/19 00:47 93 L 11/12/19 00:22 99 11/11/19 23:58 97.6 F 136 H 17 126/71 93 L 11/11/19 23:40 88 11/11/19 23:38 122 H 18 106/54 94 L 11/11/19 19:25 98 F 72 16 109/64 95 11/11/19 17:36 98.1 F 74 17 99/50 95 11/11/19 16:00 71 18 112/50 93 L 11/11/19 13:49 97.4 F L 134 H 24 106/67 84 L Intake and Output 11/11/19 11/12/19 11/12/19 22:59 06:59 14:59 Intake Total 2100 450 Output Total 0 Balance 2100 450 Intake: IV 450 Sodium Chloride 0.9% 1, 450 000 ml @ 75 mls/hr IV . [id number] ELLA Rx#:[id number] Intake, IV Titration 1800 Amount Sodium Chloride 0.9% 1, 1800 800 ml @ 999 mls/hr IV . Q1H49M ONE Rx#:[id number] Oral 300 Output: Urine 0 Other: Voiding Method Bedside Commode Weight 64.41 kg 66 kg 66 kg - Constitutional General appearance: mild distress, thin - EENT dry mucous membranes - Neck Neck: no lymphadenopathy - Respiratory Respiratory: bilateral: diminished (increased respirations, weak inspiratory effort) - Cardiovascular Heart sounds: normal: S1, S2 leg Peripheral Edema: bilateral: None - Gastrointestinal General gastrointestinal: normal bowel sounds, soft - Integumentary Integumentary: pale - Musculoskeletal Musculoskeletal: generalized weakness - Psychiatric Psychiatric: no A&O x's 3, no appropriate affect, no intact judgment & insight Results CBC & Chem 7: 11/12/19 05:05 11/12/19 05:05 Labs: Abnormal Lab Results - Last 24 Hours (Table) 11/11/19 11/11/19 11/11/19 Range/Units 14:50 14:50 14:50 WBC 168.4 H* (3.8-10.6) k/uL RBC 2.16 L (3.80-5.40) m/uL Hgb 7.5 L (11.4-16.0) gm/dL Hct 21.4 L (34.0-46.0) % MCV (80.0-100.0) fL RDW 18.7 H (11.5-15.5) % Plt Count 24 L (150-450) k/uL Blast Cells % 96 H* % Lymphocytes # (Manual) (1.0-4.8) k/uL Monocytes # (Manual) 3.37 H (0-1.0) k/uL Blast Cells # (Man) 161.66 H (0) k/uL Nucleated RBCs 16 H (0-0) /100 WBC PT (9.0-12.0) sec INR (<1.2) Potassium 3.4 L (3.5-5.1) mmol/L Chloride (98-107) mmol/L BUN 27 H (7-17) mg/dL Creatinine 1.32 H (0.52-1.04) mg/dL Glucose 137 H (74-99) mg/dL POC Glucose (mg/dL) (75-99) mg/dL Plasma Lactic Acid Jelani 4.3 H* (0.7-2.0) mmol/L Uric Acid (3.7-7.4) mg/dL Calcium 8.1 L (8.4-10.2) mg/dL Total Bilirubin 2.4 H (0.2-1.3) mg/dL AST 600 H (14-36) U/L ALT 119 H (4-34) U/L Lactate Dehydrogenase (313-618) U/L Total Protein (6.3-8.2) g/dL Albumin 3.3 L (3.5-5.0) g/dL Urine Appearance (Clear) Urine Protein (Negative) Urine Blood (Negative) Urine Bacteria (None) /hpf Hyaline Casts (0-2) /lpf Urine Mucus (None) /hpf 11/11/19 11/11/19 11/11/19 Range/Units 18:59 23:00 23:58 WBC (3.8-10.6) k/uL RBC (3.80-5.40) m/uL Hgb (11.4-16.0) gm/dL Hct (34.0-46.0) % MCV (80.0-100.0) fL RDW (11.5-15.5) % Plt Count (150-450) k/uL Blast Cells % % Lymphocytes # (Manual) (1.0-4.8) k/uL Monocytes # (Manual) (0-1.0) k/uL Blast Cells # (Man) (0) k/uL Nucleated RBCs (0-0) /100 WBC PT (9.0-12.0) sec INR (<1.2) Potassium (3.5-5.1) mmol/L Chloride (98-107) mmol/L BUN (7-17) mg/dL Creatinine (0.52-1.04) mg/dL Glucose (74-99) mg/dL POC Glucose (mg/dL) 128 H (75-99) mg/dL Plasma Lactic Acid Jelani 3.4 H* (0.7-2.0) mmol/L Uric Acid (3.7-7.4) mg/dL Calcium (8.4-10.2) mg/dL Total Bilirubin (0.2-1.3) mg/dL AST (14-36) U/L ALT (4-34) U/L Lactate Dehydrogenase (313-618) U/L Total Protein (6.3-8.2) g/dL Albumin (3.5-5.0) g/dL Urine Appearance Cloudy H (Clear) Urine Protein 1+ H (Negative) Urine Blood Small H (Negative) Urine Bacteria Rare H (None) /hpf Hyaline Casts 37 H (0-2) /lpf Urine Mucus Occasional H (None) /hpf 11/12/19 11/12/19 11/12/19 Range/Units 00:11 00:11 00:11 WBC 193.6 H* (3.8-10.6) k/uL RBC 2.04 L (3.80-5.40) m/uL Hgb 6.9 L* (11.4-16.0) gm/dL Hct 20.9 L (34.0-46.0) % MCV 102.4 H (80.0-100.0) fL RDW 18.7 H (11.5-15.5) % Plt Count 19 L* (150-450) k/uL Blast Cells % 97 H* % Lymphocytes # (Manual) 5.81 H (1.0-4.8) k/uL Monocytes # (Manual) (0-1.0) k/uL Blast Cells # (Man) 187.79 H (0) k/uL Nucleated RBCs 5 H (0-0) /100 WBC PT (9.0-12.0) sec INR (<1.2) Potassium 3.3 L (3.5-5.1) mmol/L Chloride 108 H (98-107) mmol/L BUN 29 H (7-17) mg/dL Creatinine 1.32 H (0.52-1.04) mg/dL Glucose 118 H (74-99) mg/dL POC Glucose (mg/dL) (75-99) mg/dL Plasma Lactic Acid Jelani 3.6 H* (0.7-2.0) mmol/L Uric Acid (3.7-7.4) mg/dL Calcium 7.6 L (8.4-10.2) mg/dL Total Bilirubin 2.8 H (0.2-1.3) mg/dL AST 1148 H (14-36) U/L ALT 224 H (4-34) U/L Lactate Dehydrogenase (313-618) U/L Total Protein 6.2 L (6.3-8.2) g/dL Albumin 3.1 L (3.5-5.0) g/dL Urine Appearance (Clear) Urine Protein (Negative) Urine Blood (Negative) Urine Bacteria (None) /hpf Hyaline Casts (0-2) /lpf Urine Mucus (None) /hpf 11/12/19 11/12/19 11/12/19 Range/Units 05:05 05:05 05:05 WBC 216.6 H* (3.8-10.6) k/uL RBC 1.96 L (3.80-5.40) m/uL Hgb 6.7 L* (11.4-16.0) gm/dL Hct 20.0 L (34.0-46.0) % MCV 101.8 H (80.0-100.0) fL RDW 19.1 H (11.5-15.5) % Plt Count 20 L (150-450) k/uL Blast Cells % 93 H* % Lymphocytes # (Manual) 10.83 H (1.0-4.8) k/uL Monocytes # (Manual) (0-1.0) k/uL Blast Cells # (Man) 201.44 H (0) k/uL Nucleated RBCs 3 H (0-0) /100 WBC PT 24.2 H (9.0-12.0) sec INR 2.5 H (<1.2) Potassium 3.1 L (3.5-5.1) mmol/L Chloride 108 H (98-107) mmol/L BUN 30 H (7-17) mg/dL Creatinine 1.28 H (0.52-1.04) mg/dL Glucose 112 H (74-99) mg/dL POC Glucose (mg/dL) (75-99) mg/dL Plasma Lactic Acid Jelani (0.7-2.0) mmol/L Uric Acid 14.0 H (3.7-7.4) mg/dL Calcium 7.8 L (8.4-10.2) mg/dL Total Bilirubin 3.0 H (0.2-1.3) mg/dL AST 1790 H (14-36) U/L ALT 393 H (4-34) U/L Lactate Dehydrogenase 53935 H (313-618) U/L Total Protein (6.3-8.2) g/dL Albumin 3.3 L (3.5-5.0) g/dL Urine Appearance (Clear) Urine Protein (Negative) Urine Blood (Negative) Urine Bacteria (None) /hpf Hyaline Casts (0-2) /lpf Urine Mucus (None) /hpf 11/12/19 11/12/19 Range/Units 05:05 09:46 WBC (3.8-10.6) k/uL RBC (3.80-5.40) m/uL Hgb (11.4-16.0) gm/dL Hct (34.0-46.0) % MCV (80.0-100.0) fL RDW (11.5-15.5) % Plt Count (150-450) k/uL Blast Cells % % Lymphocytes # (Manual) (1.0-4.8) k/uL Monocytes # (Manual) (0-1.0) k/uL Blast Cells # (Man) (0) k/uL Nucleated RBCs (0-0) /100 WBC PT (9.0-12.0) sec INR (<1.2) Potassium (3.5-5.1) mmol/L Chloride (98-107) mmol/L BUN (7-17) mg/dL Creatinine (0.52-1.04) mg/dL Glucose (74-99) mg/dL POC Glucose (mg/dL) (75-99) mg/dL Plasma Lactic Acid Jelani 3.9 H* 5.7 H* (0.7-2.0) mmol/L Uric Acid (3.7-7.4) mg/dL Calcium (8.4-10.2) mg/dL Total Bilirubin (0.2-1.3) mg/dL AST (14-36) U/L ALT (4-34) U/L Lactate Dehydrogenase (313-618) U/L Total Protein (6.3-8.2) g/dL Albumin (3.5-5.0) g/dL Urine Appearance (Clear) Urine Protein (Negative) Urine Blood (Negative) Urine Bacteria (None) /hpf Hyaline Casts (0-2) /lpf Urine Mucus (None) /hpf Assessment and Plan (1) Spontaneous tumor lysis syndrome Status: Acute Priority: High Code(s): E88.3 - TUMOR LYSIS SYNDROME SNOMED Code(s): 638838037 (2) AML (acute myeloblastic leukemia) Status: Acute Priority: High Code(s): C92.00 - ACUTE MYELOBLASTIC LEUKEMIA, NOT HAVING ACHIEVED REMISSION SNOMED Code(s): 00925339 Plan: I spoke with both of the patient's daughters. One is driving from [place], the other one is local. Both of the daughters are on the same page when it comes to patient wishes, they have spoken with their mother. We discussed patient's unfortunate rapid progression of disease. WBC is greater than 200, 10 days ago it 18. Patient is not a candidate for induction treatment. Unfortunately, the less intense regimens that could be used in her age group would not provide disease control fast enough to have any significant impact on her disease to provide meaningful relief of symptoms. Patient is severely weak and visibly ill. It is agreed upon by the family that patient would not want to be resuscitated, as the underlying cause of her problems cannot be corrected. Patient has been made a no code. We will continue to provide supportive measures as there is a daughter coming from [place] but, when I spoke with her on the phone she was well aware of her mother's very delicate condition and that pt may succumb to her illness. She understood and did not want to prolong pt life artificially in order for her to be present. Discussed case with Attending, RN.
[2019-11-25] MEDS ORDERED: ERGOCALCIFEROL 50,000 UNIT CAP PO SCH (09:00)
== END 2019-11-12 12:54 | disposition hospice, inpatient (51) | DRG 834 ==
LOC: EC 13:47 → 5NMEDONC 16:28 → 3SCARD 11-12 00:26
PROVIDERS: ADMIT Internal Medicine; ATTEND Internal Medicine
DX: C92.00 Acute myeloblastic leukemia, not having achieved remission (principal); J96.01 Acute respiratory failure with hypoxia; E88.3 Tumor lysis syndrome; K72.00 Acute and subacute hepatic failure without coma; R65.10 Systemic inflammatory response syndrome (SIRS) of non-infectious origin without acute organ dysfunction; E87.2 Acidosis; N17.9 Acute kidney failure, unspecified; I48.19 Other persistent atrial fibrillation; D69.6 Thrombocytopenia, unspecified; E86.0 Dehydration; D63.0 Anemia in neoplastic disease; Z66 Do not resuscitate; Z51.5 Encounter for palliative care; I51.7 Cardiomegaly; R74.8 Abnormal levels of other serum enzymes; R63.0 Anorexia; K21.9 Gastro-esophageal reflux disease without esophagitis; N18.2 Chronic kidney disease, stage 2 (mild); E87.6 Hypokalemia; E03.9 Hypothyroidism, unspecified; E66.9 Obesity, unspecified; Z71.3 Dietary counseling and surveillance; Z68.26 Body mass index [BMI] 26.0-26.9, adult; Z79.890 Hormone replacement therapy; Z79.899 Other long term (current) drug therapy; Z88.0 Allergy status to penicillin; Z82.49 Family history of ischemic heart disease and other diseases of the circulatory system
CPT/HCPCS: 36415; 71046; 80051; 80053; 81001; 83605; 83615; 83735; 84100; 84443; 84550; 85025; 85610; 85730; 86850; 86900; 86901; 87040; 93005; 93306; 94760; 96361; 96374; 96375; 99285

== ENCOUNTER 2019-11-12 12:39 | Inpatient (IN) | payer MEDICAID ==
[2019-11-12] MEDS ORDERED: SCOPOLAMINE 1.5MG/72HR PATCH TRANSDERM SCH (12:45)
[2019-11-12] MEDS ORDERED: ONDANSETRON 4 MG/2 ML VIAL IVP PRN (12:45)
[2019-11-12] MEDS ORDERED: ATROPINE OPHTH SOLN 1% 5ML BTL SUBLINGUAL PRN (12:45)
[2019-11-12] MEDS: LORazepam 2 MG/ML INJ IV PRN ×2 (13:37→15:30)
[2019-11-12] MEDS: MORPHINE SULFATE 2 MG/ML SYRINGE IV PRN ×2 (14:14→16:36)
== END 2019-11-12 19:03 | disposition expired | DRG 951 ==
LOC: 3SCARD 12:57
PROVIDERS: ADMIT Internal Medicine; ATTEND Internal Medicine
DX: Z51.5 Encounter for palliative care (principal); J96.01 Acute respiratory failure with hypoxia; K72.00 Acute and subacute hepatic failure without coma; C92.00 Acute myeloblastic leukemia, not having achieved remission; E87.2 Acidosis; N17.9 Acute kidney failure, unspecified; R65.10 Systemic inflammatory response syndrome (SIRS) of non-infectious origin without acute organ dysfunction; I48.20 Chronic atrial fibrillation, unspecified; Z66 Do not resuscitate; N18.3 Chronic kidney disease, stage 3 (moderate); E03.9 Hypothyroidism, unspecified; K21.9 Gastro-esophageal reflux disease without esophagitis; E86.0 Dehydration; E87.6 Hypokalemia; Z79.890 Hormone replacement therapy; Z79.899 Other long term (current) drug therapy